=== PATIENT | male | born 1955 | race Caucasian/White ===

== ENCOUNTER 2017-10-28 14:03 | Emergency (ER) | payer BC, OTHER ==
[2017-10-28 14:14] VITALS: BP 145/90
[2017-10-28] MEDS ORDERED: Sodium Chloride 0.9% 10 ML Syringe FLUSH PRN (14:29)
[2017-10-28] MEDS ORDERED: Magnesium Sulfate/Water 2 GM in Premix Bag 1 BAG IV ONE (14:30)
[2017-10-28] MEDS ORDERED: Albuterol 0.083% 2.5 MG/3 ML Neb Soln NEB ONE (14:30)
[2017-10-28] MEDS ORDERED: Aspirin 81 MG Tab.Chew PO ONE (14:30)
[2017-10-28] MEDS ORDERED: Albuterol/Ipratropium 3.0-0.5 MG/3 ML Neb Soln NEB ONE (14:36)
--- NOTE | 2017-10-28 14:38 | EDM.PDOC ---
ED HPI GENERAL MEDICAL PROBLEM - General Chief Complaint: Cardiovascular Problem Stated Complaint: DIFFICULTY BREATHING Time Seen by Provider: 10/28/17 14:20 Source of Information: Reports: Patient History Limitations: Reports: No Limitations - History of Present Illness INITIAL COMMENTS - FREE TEXT/NARRATIVE: Patient is a 62-year-old male with a history of COPD who presents the ED complaining of shortness of breath, chest tightness, episodic diaphoresis, and mild dizziness/nausea. Patient has been outdoor shampooing some carpets and up and down steps today. He got winded and short of breath. This is not unusual for him since he has a history of COPD. The issue is he has been unable to catch his breath. Normally uses a albuterol neb treatment and also inhaler 3 times a day. He has not been able to do this since his albuterol neb treatment is at home. He has used his albuterol inhaler twice today with no significant improvements. Denies any cardiac history. Past medical history includes: COPD, seasonal allergies, hypertension, hypothyroidism, anemia Patient is on Mucinex, Mirapex, multivitamin, Singulair, lysine, Claritin, lisinopril, Synthroid, Flonase, ferrous sulfate, Symbicort, DuoNeb, and albuterol inhaler. Treatments CONDUCTOR/BRAKEMAN: Reports: Other (see below) Other Treatments CONDUCTOR/BRAKEMAN: albuteral inhaler - Related Data Allergies Allergy/AdvReac Type Severity Reaction Status Date / Time codeine AdvReac Nausea and Verified 01/13/16 13:48 Vomiting Home Meds: Home Meds Levothyroxine Sodium [Synthroid] 150 mcg PO DAILY 08/26/13 [History] Lisinopril 20 mg PO DAILY 08/26/13 [History] Montelukast [Singulair] 10 mg PO BEDTIME 08/26/13 [History] Multivitamin [Multi-Vitamin Daily] 1 each PO DAILY 08/26/13 [History] Albuterol Sulfate [Proventil Hfa] 6.7 gm IH Q4HR PRN 01/13/16 [History] Albuterol/Ipratropium [DuoNeb 3.0-0.5 MG/3 ML] 3 ml NEB Q4HR 01/13/16 [History] Budesonide/Formoterol [Symbicort 160-4.5 MCG] 2 puff INH BID 01/13/16 [History] Fluticasone Propionate [Flonase] 2 sprays NASBOTH DAILY 01/13/16 [History] Loratadine [Claritin] 10 mg PO DAILY PRN 01/13/16 [History] Lysine 500 mg PO DAILY 01/13/16 [History] Pramipexole Di-HCl [Mirapex] 0.125 mg PO DAILY PRN 01/13/16 [History] guaiFENesin [Mucinex] 1,200 mg PO DAILY PRN 01/13/16 [History] Past Medical History HEENT History: Reports: Impaired Vision Cardiovascular History: Reports: Hypertension Respiratory History: Reports: Asthma, COPD - Past Surgical History Other GI Surgeries/Procedures: hernia repair september 2014 Other Endocrine Surgeries/Procedures: thyroidectomy 5 years ago Social & Family History - Tobacco Use Smoking Status *Q: Former Smoker Used Tobacco, but Quit: Yes Month/Year Tobacco Last Used: 9 yrs - Caffeine Use Caffeine Use: Reports: Coffee, Soda - Recreational Drug Use Recreational Drug Use: No ED ROS GENERAL - Review of Systems Review Of Systems: See Below Constitutional: Reports: No Symptoms ED EXAM, GENERAL - Physical Exam Exam: See Below Exam Limited By: Other (Short of breath able to speak in 4 word sentences.) General Appearance: Alert, WD/WN, Mild Distress Eye Exam: Bilateral Eye: Normal Inspection, PERRL Ears: Hearing Grossly Normal Nose: Normal Inspection Throat/Mouth: Normal Voice, No Airway Compromise Head: Atraumatic, Normocephalic Neck: Normal Inspection, Supple, Non-Tender, Full Range of Motion Respiratory/Chest: Lungs Clear (Diminished throughout.), Chest Non-Tender, Accessory Muscle Use, Prolonged Expiration Cardiovascular: Normal Peripheral Pulses, Regular Rate, Rhythm, No Murmur Peripheral Pulses: 4+: Radial (L) GI/Abdominal: Normal Bowel Sounds, Soft, Non-Tender, No Organomegaly, No Distention Extremities: Normal Range of Motion, Non-Tender, Other (Coloring noted to the lower extremities consistent with venous stasis issues. Hemosiderin color.). No : No Pedal Edema (Trace edema bilaterally. No pain posteriorly.) Neurological: Alert, Oriented, CN II-XII Intact, Normal Cognition, No Motor/ Sensory Deficits Psychiatric: Normal Affect, Normal Mood Skin Exam: Warm, Dry, Intact Course - Vital Signs Last Recorded V/S: Last Vital Signs Temp 96.7 F 10/28/17 14:12 Pulse 97 10/28/17 14:12 Resp 21 H 10/28/17 14:12 BP 145/90 H 10/28/17 14:12 Pulse Ox 95 10/28/17 14:37 - Orders/Labs/Meds Labs: Laboratory Tests 10/28/17 10/28/17 10/28/17 Range/Units 14:38 14:38 14:38 WBC 8.98 (4.23-9.07) K/mm3 RBC 4.69 (4.63-6.08) M/mm3 Hgb 14.4 (13.7-17.5) gm/L Hct 43.8 (40.1-51.0) % MCV 93.4 H (79.0-92.2) fl MCH 30.7 (25.7-32.2) pg MCHC 32.9 (32.2-35.5) g/dl RDW Std Deviation 47.2 H (35.1-43.9) fL Plt Count 197 (163-337) K/mm3 MPV 10.5 (9.4-12.3) fl Neutrophils % (Manual) 57 (40-60) % Band Neutrophils % 1 (0-10) % Lymphocytes % (Manual) 33 (20-40) % Atypical Lymphs % 0 % Monocytes % (Manual) 3 (2-10) % Eosinophils % (Manual) 5 (0.8-7.0) % Basophils % (Manual) 1 (0.2-1.2) Platelet Estimate Adequate Plt Morphology Comment Normal RBC Morph Comment Normal PT 10.3 (9.5-12.1) SECONDS INR 0.94 APTT 29 (24-31) SECONDS D-Dimer, Quantitative 0.64 H (0.19-0.50) mg/L Sodium 142 (136-145) mEq/L Potassium 4.1 (3.5-5.1) mEq/L Chloride 107 (98-107) mEq/L Carbon Dioxide 23 (21-32) mEq/L Anion Gap 16.1 H (5-15) BUN 27 H (7-18) mg/dL Creatinine 1.2 (0.7-1.3) mg/dL Est Cr Clr Drug Dosing 66.24 mL/min Estimated GFR (MDRD) > 60 (>60) mL/min BUN/Creatinine Ratio 22.5 H (14-18) Glucose 166 H (80-115) mg/dL Calcium 8.0 L (8.5-10.1) mg/dL Magnesium 1.9 (1.8-2.4) mg/dl Total Bilirubin 0.3 (0.2-1.0) mg/dL AST 7 L (15-37) U/L ALT 33 (16-63) U/L Alkaline Phosphatase 113 (46-116) U/L Troponin I < 0.017 (0.00-0.056) ng/mL NT-Pro-B Natriuret Pep (0-125) pg/mL Total Protein 6.4 (6.4-8.2) g/dl Albumin 3.3 L (3.4-5.0) g/dl Globulin 3.1 gm/dL Albumin/Globulin Ratio 1.1 (1-2) 10/28/17 10/28/17 Range/Units 14:38 18:06 WBC (4.23-9.07) K/mm3 RBC (4.63-6.08) M/mm3 Hgb (13.7-17.5) gm/L Hct (40.1-51.0) % MCV (79.0-92.2) fl MCH (25.7-32.2) pg MCHC (32.2-35.5) g/dl RDW Std Deviation (35.1-43.9) fL Plt Count (163-337) K/mm3 MPV (9.4-12.3) fl Neutrophils % (Manual) (40-60) % Band Neutrophils % (0-10) % Lymphocytes % (Manual) (20-40) % Atypical Lymphs % % Monocytes % (Manual) (2-10) % Eosinophils % (Manual) (0.8-7.0) % Basophils % (Manual) (0.2-1.2) Platelet Estimate Plt Morphology Comment RBC Morph Comment PT (9.5-12.1) SECONDS INR APTT (24-31) SECONDS D-Dimer, Quantitative (0.19-0.50) mg/L Sodium (136-145) mEq/L Potassium (3.5-5.1) mEq/L Chloride (98-107) mEq/L Carbon Dioxide (21-32) mEq/L Anion Gap (5-15) BUN (7-18) mg/dL Creatinine (0.7-1.3) mg/dL Est Cr Clr Drug Dosing mL/min Estimated GFR (MDRD) (>60) mL/min BUN/Creatinine Ratio (14-18) Glucose (80-115) mg/dL Calcium (8.5-10.1) mg/dL Magnesium (1.8-2.4) mg/dl Total Bilirubin (0.2-1.0) mg/dL AST (15-37) U/L ALT (16-63) U/L Alkaline Phosphatase (46-116) U/L Troponin I < 0.017 (0.00-0.056) ng/mL NT-Pro-B Natriuret Pep 58 (0-125) pg/mL Total Protein (6.4-8.2) g/dl Albumin (3.4-5.0) g/dl Globulin gm/dL Albumin/Globulin Ratio (1-2) Meds: Medications Discontinued Medications Generic Name Dose Route Start Last Admin Trade Name Freq PRN Reason Stop Dose Admin Albuterol 2.5 mg 10/28/17 14:30 10/28/17 14:35 Proventil Neb Soln NEB 10/28/17 14:31 2.5 mg ONETIME ONE Administration Albuterol/Ipratropium 3 ml 10/28/17 14:36 10/28/17 16:34 Duoneb 3.0-0.5 Mg/3 Ml NEB 10/28/17 14:37 3 ml ONETIME ONE Administration Aspirin 324 mg 10/28/17 14:30 10/28/17 14:40 Aspirin PO 10/28/17 14:31 324 mg ONETIME ONE Administration Magnesium Sulfate 2 gm/ Premix 50 mls @ 25 mls/hr 10/28/17 14:30 10/28/17 14: 40 IV 10/28/17 16:29 25 mls/hr ONETIME ONE Administration Sodium Chloride 10 ml 10/28/17 14:29 10/28/17 14:40 Saline Flush FLUSH 10 ml ASDIRECTED PRN Administration Keep Vein Open - Re-Assessments/Exams Free Text/Narrative Re-Assessment/Exam: Peripheral IV will be started. Ordered magnesium 2 g IV, aspirin 324 mg by mouth , and albuterol neb treatment 1. Initial labs and studies include CBC, chem 14, magnesium, Procrit BMP, coag studies, troponin, chest x-ray two-view, and EKG. EKG: Sinus rhythm at a rate of 70, early R-wave transition with poor R-wave transition. QT mildly prolonged. Left axis deviation -20. Q waves 1, 3, and aVF old inferior wall TX. CXR: Reviewed with Dr. Hargrove with no acute findings noted. Labs reviewed: CMP did not reveal any concerning findings. CBC was essentially normal. D-dimer is mildly elevated at 0.64 appropriate for age. Troponin less than 0.017. ProBNP is 58. Magnesium is 1.9. 1555 Reassessment, patient states his breathing has significant improvement with the above therapies. Patient believes all symptoms are related to his COPD. I will obtain a second troponin 3 hours from initial blood draw. 1730 2nd troponin should be drawn. 10/28/17 18:49 Second troponin unchanged. Reassessment, patient has no concerning symptoms. He is ready to be discharged home. Discharge instructions as documented. Departure - Departure Time of Disposition: 18:55 Disposition: Home, Self-Care 01 Condition: Good Clinical Impression: COPD exacerbation Instructions: Chronic Obstructive Pulmonary Disease Exacerbation, [id number] , Chronic Obstructive Pulmonary Disease Referrals: Main Coles MD [Primary Care Provider] - Forms: ED Department Discharge Additional Instructions: Continue taking all home medications as prescribed. Followup with PCP this coming week for reevaluation. Return to the E.D. for any new or worsening symptoms.
--- NOTE | 2017-10-29 08:23 | CR ---
Chest: Two views of the chest were obtained. Comparison: Prior chest x-ray of 08/25/13. Heart size slightly enlarged. Upper mediastinum is widened but stable. Lungs are clear with no acute parenchymal change. Surgical clips are seen within the left upper abdomen. Bony structures are grossly intact. Impression: 1. Incidental findings. Nothing acute is seen. Diagnostic code #2
== END 2017-10-28 19:05 | disposition home or self-care (01) ==
LOC: JD.ED 14:03
DX: J44.1 Chronic obstructive pulmonary disease with (acute) exacerbation (principal); I10 Essential (primary) hypertension; Z87.891 Personal history of nicotine dependence; Z79.899 Other long term (current) drug therapy; Z88.5 Allergy status to narcotic agent
CPT/HCPCS: 36415; 71046; 80053; 83735; 83880; 84484; 85007; 85027; 85379; 85610; 85730; 93005; 94640; 96365; 96366; 99285; A9270; J7050; 99283; J3475

== ENCOUNTER 2020-04-12 12:12 | Emergency (ER) | payer MEDICARE, BC ==
[2020-04-12 12:30] VITALS: BP 121/85; PULSE 96
--- NOTE | 2020-04-12 13:15 | EDM.PDOC ---
ED HPI GENERAL MEDICAL PROBLEM - General Chief Complaint: Respiratory Problem Stated Complaint: COVID + AND COPD SOB CHEST PAIN Time Seen by Provider: 04/12/20 12:15 Source of Information: Reports: Patient, RN Notes Reviewed History Limitations: Reports: No Limitations - History of Present Illness INITIAL COMMENTS - FREE TEXT/NARRATIVE: Patient is a 64-year-old male presenting to the emergency department with complaints of shortness of breath, chest tightness, nausea, fever, chills, and generalized body aches. States his symptoms started approximately 9 days ago. He was seen in the clinic 5 days ago by YASMEEN Nixon and had work-up completed. He was diagnosed with COVID. CT angiogram of the chest was completed that time and showed no pulmonary emboli. Patient was placed on prednisone 20 mg twice daily x5 days as well as doxycycline. He has finished his course of prednisone yesterday, but is still taking doxycycline. His symptoms have been fairly consistent throughout his illness. He does not feel that the shortness of breath is significantly worsening, however states when he woke up this morning, his chest felt tight, so he thought he should be evalu ated. He does have a pulse oximeter at home and states that his oxygen saturations have been in the low 90s. Patient has a history of COPD, hypertension, and asthma. He has been using Tylenol for his fevers which he states overall has been working. Vital signs in triage were stable. Blood pressure 121/85, pulse 96, respiratory 20, oxygen saturation 93% on room air, temperature 99.1 temporal. Headache Pain Score (Numeric/FACES): 5 - Related Data Allergies Allergy/AdvReac Type Severity Reaction Status Date / Time codeine AdvReac Nausea and Verified 04/12/20 12:30 Vomiting Home Meds: Home Meds Levothyroxine Sodium [Synthroid] 150 mcg PO DAILY 08/26/13 [History] Lisinopril 20 mg PO DAILY 08/26/13 [History] Montelukast [Singulair] 10 mg PO BEDTIME 08/26/13 [History] Multivitamin [Multi-Vitamin Daily] 1 each PO DAILY 08/26/13 [History] Albuterol Sulfate [Proventil Hfa] 6.7 gm IH Q4HR PRN 01/13/16 [History] Albuterol/Ipratropium [DuoNeb 3.0-0.5 MG/3 ML] 3 ml NEB Q4HR 01/13/16 [History] Budesonide/Formoterol [Symbicort 160-4.5 MCG] 2 puff INH BID 01/13/16 [History] Fluticasone Propionate [Flonase] 2 sprays NASBOTH DAILY 01/13/16 [History] Loratadine [Claritin] 10 mg PO DAILY PRN 01/13/16 [History] Lysine 500 mg PO DAILY 01/13/16 [History] Pramipexole Di-HCl [Mirapex] 0.125 mg PO DAILY PRN 01/13/16 [History] guaiFENesin [Mucinex] 1,200 mg PO DAILY PRN 01/13/16 [History] Past Medical History HEENT History: Reports: Impaired Vision Cardiovascular History: Reports: Hypertension Respiratory History: Reports: Asthma, COPD - Infectious Disease History Infectious Disease History: Reports: Novel Coronavirus - Past Surgical History Other GI Surgeries/Procedures: hernia repair september 2014 Endocrine Surgical History: Reports: Thyroidectomy Other Endocrine Surgeries/Procedures: thyroidectomy 5 years ago Social & Family History - Tobacco Use Tobacco Use Status *Q: Former Tobacco User Used Tobacco, but Quit: Yes Month/Year Tobacco Last Used: 12 years ago - Caffeine Use Caffeine Use: Reports: Coffee - Recreational Drug Use Recreational Drug Use: No ED ROS GENERAL - Review of Systems Review Of Systems: See Below Constitutional: Reports: Fever, Chills, Fatigue HEENT: Reports: Throat Pain. Denies: Sinus Problem Respiratory: Reports: Shortness of Breath, Pleuritic Chest Pain, Cough Cardiovascular: Reports: No Symptoms Endocrine: Reports: No Symptoms GI/Abdominal: Reports: Nausea. Denies: Abdominal Pain, Diarrhea, Vomiting : Reports: No Symptoms Musculoskeletal: Reports: Other (Generalized body aches) Skin: Reports: No Symptoms Neurological: Reports: No Symptoms Psychiatric: Reports: No Symptoms Hematologic/Lymphatic: Reports: No Symptoms Immunologic: Reports: No Symptoms ED EXAM, GENERAL - Physical Exam Exam: See Below Exam Limited By: No Limitations General Appearance: Alert, WD/WN, No Apparent Distress Respiratory/Chest: No Respiratory Distress, Lungs Clear, Normal Breath Sounds, No Accessory Muscle Use, Chest Non-Tender Cardiovascular: Normal Peripheral Pulses, Regular Rate, Rhythm, No Edema, No Gallop, No JVD, No Murmur, No Rub GI/Abdominal: Normal Bowel Sounds, Soft, Non-Tender, No Organomegaly, No Distention, No Abnormal Bruit, No Mass Neurological: Alert, Oriented, CN II-XII Intact, Normal Cognition, Normal Gait, Normal Reflexes, No Motor/Sensory Deficits Psychiatric: Normal Affect, Normal Mood Skin Exam: Warm, Dry, Intact, Normal Color, No Rash #1 Interpretation EKG Date: 04/12/20 Time: 12:35 Rhythm: NSR Rate (Beats/Min): 90 [place]: Normal P-Wave: Present QRS: Normal ST-T: Normal QT: Normal Course - Vital Signs Last Recorded V/S: Last Vital Signs Temp 99.1 F 04/12/20 12:25 Pulse 96 04/12/20 12:25 Resp 20 04/12/20 12:25 BP 121/85 04/12/20 12:25 Pulse Ox 93 L 04/12/20 12:25 - Orders/Labs/Meds Labs: Laboratory Tests 04/12/20 04/12/20 04/12/20 Range/Units 12:50 12:50 12:50 WBC 7.60 (4.23-9.07) K/mm3 RBC 4.79 (4.63-6.08) M/mm3 Hgb 14.5 (13.7-17.5) gm/dl Hct 43.8 (40.1-51.0) % MCV 91.4 (79.0-92.2) fl MCH 30.3 (25.7-32.2) pg MCHC 33.1 (32.2-35.5) g/dl RDW Std Deviation 45.8 H (35.1-43.9) fL Plt Count 191 (163-337) K/mm3 MPV 10.0 (9.4-12.3) fl Neut % (Auto) 83.4 H (34.0-67.9) % Lymph % (Auto) 10.4 L (21.8-53.1) % [place] % (Auto) 5.7 (5.3-12.2) % Eos % (Auto) 0 L (0.8-7.0) Baso % (Auto) 0.1 (0.1-1.2) % Neut # (Auto) 6.34 H (1.78-5.38) K/mm3 Lymph # (Auto) 0.79 L (1.32-3.57) K/mm3 [place] # (Auto) 0.43 (0.30-0.82) K/mm3 Eos # (Auto) 0.00 L (0.04-0.54) K/mm3 Baso # (Auto) 0.01 (0.01-0.08) K/mm3 Manual Slide Review Normal smear D-Dimer, Quantitative 1.20 H (0.19-0.50) mg/L Sodium 136 (136-145) mEq/L Potassium 3.8 (3.5-5.1) mEq/L Chloride 102 (98-107) mEq/L Carbon Dioxide 22 (21-32) mEq/L Anion Gap 15.8 H (5-15) BUN 24 H (7-18) mg/dL Creatinine 1.2 (0.7-1.3) mg/dL Est Cr Clr Drug Dosing 64.49 mL/min Estimated GFR (MDRD) > 60 (>60) mL/min BUN/Creatinine Ratio 20.0 H (14-18) Glucose 112 (80-115) mg/dL Calcium 7.8 L (8.5-10.1) mg/dL Ferritin (26-388) ng/ml Total Bilirubin 0.5 (0.2-1.0) mg/dL AST 34 (15-37) U/L ALT 56 (16-63) U/L Alkaline Phosphatase 79 (46-116) U/L Lactate Dehydrogenase 283 H (85-227) U/L Troponin I < 0.017 (0.00-0.056) ng/mL C-Reactive Protein 6.4 H* (<1.0) mg/dL NT-Pro-B Natriuret Pep (0-125) pg/mL Total Protein 6.7 (6.4-8.2) g/dl Albumin 2.8 L (3.4-5.0) g/dl Globulin 3.9 gm/dL Albumin/Globulin Ratio 0.7 L (1-2) 04/12/20 04/12/20 Range/Units 12:50 12:50 WBC (4.23-9.07) K/mm3 RBC (4.63-6.08) M/mm3 Hgb (13.7-17.5) gm/dl Hct (40.1-51.0) % MCV (79.0-92.2) fl MCH (25.7-32.2) pg MCHC (32.2-35.5) g/dl RDW Std Deviation (35.1-43.9) fL Plt Count (163-337) K/mm3 MPV (9.4-12.3) fl Neut % (Auto) (34.0-67.9) % Lymph % (Auto) (21.8-53.1) % [place] % (Auto) (5.3-12.2) % Eos % (Auto) (0.8-7.0) Baso % (Auto) (0.1-1.2) % Neut # (Auto) (1.78-5.38) K/mm3 Lymph # (Auto) (1.32-3.57) K/mm3 [place] # (Auto) (0.30-0.82) K/mm3 Eos # (Auto) (0.04-0.54) K/mm3 Baso # (Auto) (0.01-0.08) K/mm3 Manual Slide Review D-Dimer, Quantitative (0.19-0.50) mg/L Sodium (136-145) mEq/L Potassium (3.5-5.1) mEq/L Chloride (98-107) mEq/L Carbon Dioxide (21-32) mEq/L Anion Gap (5-15) BUN (7-18) mg/dL Creatinine (0.7-1.3) mg/dL Est Cr Clr Drug Dosing mL/min Estimated GFR (MDRD) (>60) mL/min BUN/Creatinine Ratio (14-18) Glucose (80-115) mg/dL Calcium (8.5-10.1) mg/dL Ferritin 639 H (26-388) ng/ml Total Bilirubin (0.2-1.0) mg/dL AST (15-37) U/L ALT (16-63) U/L Alkaline Phosphatase (46-116) U/L Lactate Dehydrogenase (85-227) U/L Troponin I (0.00-0.056) ng/mL C-Reactive Protein (<1.0) mg/dL NT-Pro-B Natriuret Pep 169 H (0-125) pg/mL Total Protein (6.4-8.2) g/dl Albumin (3.4-5.0) g/dl Globulin gm/dL Albumin/Globulin Ratio (1-2) - Re-Assessments/Exams Free Text/Narrative Re-Assessment/Exam: Patient is a 64-year-old male presenting to the emergency department with complaints of ongoing Covid symptoms. Symptoms began last Sunday which is approximately 9 days ago. He was seen in the clinic last Sunday. Chest x- ray and CT angiogram were completed that time and found to be overall normal. He was started on prednisone 20 mg twice daily x5 days, as well as doxycycline. He has finished the prednisone course yesterday and continues to take doxycycline. He presents today due to chest tightness upon waking today. He states overall his symptoms have been fairly consistent he does not feel it is necessarily getting worse. Have ordered routine Covid labs, chest x-ray, EKG. 04/12/20 13:51 Hemotology was significant for D-dimer elevated at 1.2, anion gap 15.8, ferritin 639, LDH 283, CRP 6.4, proBNP 169. Troponin was negative. EKG showed no acute ischemia. Chest x-ray showed no acute findings. Discussed the possibility of repeating CT angiogram with patient. He has elected to not recomplete the exam. I am in agreement with this as the elevation of his D-dimer is likely due to Covid as opposed to blood clot. His shortness of breath has not worsened. He is not hypoxic or tachycardic. Oxygen saturations have maintained 92 to 94% on room air throughout his stay in the ER. We will discharge him home to continue symptomatic treatment. He does have a pulse ox at home. Discussed return precautions. Discharge instructions as documented. Departure - Departure Time of Disposition: 13:52 Disposition: Home, Self-Care 01 Condition: Good Clinical Impression: COVID-19 - Discharge Information *PRESCRIPTION DRUG MONITORING PROGRAM REVIEWED*: No *COPY OF PRESCRIPTION DRUG MONITORING REPORT IN PATIENT DIALLO: No Instructions: COVID-19 Frequently Asked Questions, COVID-19 Referrals: Main Coles MD [Primary Care Provider] - Forms: ED Department Discharge Additional Instructions: You were seen in the emergency department today for ongoing symptoms related to COVID-19. Work-up included blood work, chest x-ray, and an EKG of your heart. Your blood work was consistent with a diagnosis of COVID-19 with regards to some mild elevation in your inflammatory markers. Your cardiac work-up was found to be normal. You are not having a heart attack. Chest x-ray showed no signs of pneumonia. Recommend that you continue symptomatic treatment at home. Continue to check your oxygen saturations using your pulse oximeter intermittently throughout the day. If you are maintaining an oxygen saturation below 90%, that would indicate that you are hypoxic and you should return to the emergency department for reevaluation. If you experience any other new or worsening symptoms of concern, please not hesitate to return for reevaluation. Sepsis Event Note (ED) - Evaluation Sepsis Screening Result: No Definite Risk - Focused Exam Vital Signs: Vital Signs Temp Pulse Resp BP Pulse Ox 04/12/20 12:25 99.1 F 96 20 121/85 93 L
--- NOTE | 2020-04-12 13:56 | CR ---
PROCEDURE INFORMATION: Exam: XR Chest, 1 View Exam date and time: 04/12/2020 12:18 PM Age: 64 years old Clinical indication: Shortness of breath; Chest pain; Type not specified; Patient HX: Covid+ TECHNIQUE: Imaging protocol: XR of the chest Views: 1 view. COMPARISON: DX Chest 2V 04/07/2020 10:52 AM FINDINGS: Tubes, catheters and devices: Numerous surgical clips in the expected region of the thyroid. Lungs: The lungs are normally expanded and clear. Pleural space: Normal. Heart/Mediastinum: Chronic unchanged cardiomegaly. Vasculature: Normal pulmonary vessel caliber. Normal aorta. Bones/joints: The bones are intact. IMPRESSION: No change or acute disease. Chronic cardiomegaly and evidence of prior thyroidectomy. Thank you for allowing us to participate in the care of your patient. Dictated and Authenticated by: Mauro Flower MD 04/12/2020 1:54 PM Central Time ([place] & [place]) [facility]
== END 2020-04-12 14:20 | disposition home or self-care (01) ==
LOC: JD.ED 12:12
DX: U07.1 COVID-19 (principal); I10 Essential (primary) hypertension; J44.9 Chronic obstructive pulmonary disease, unspecified; Z87.891 Personal history of nicotine dependence; Z88.5 Allergy status to narcotic agent; Z79.899 Other long term (current) drug therapy
CPT/HCPCS: 36415; 71045; 71045-26; 80053; 82728; 83615; 83880; 84484; 85025; 85379; 86140; 93005; 93010; 99283; 99285-25

== ENCOUNTER 2021-06-09 06:03 | Emergency (ER) | payer MEDICARE, BC ==
[2021-06-09 07:09] LABS: CORONAVIRUS COVID-19 NAA NEGATIVE (NEGATIVE)
[2021-06-09] MEDS ORDERED: Sodium Chloride 0.9% 1,000 ML IV SCH (08:45)
[2021-06-09] MEDS ORDERED: Iopamidol 755 Mg/ML 100 ML Bottle IVPUSH ONE (08:51)
[2021-06-09] MEDS ORDERED: Sodium Chloride 0.9% 10 ML Syringe FLUSH PRN (08:51)
[2021-06-09] MEDS ORDERED: Sodium Chloride 0.9% 100 ML IV SCH (09:00)
[2021-06-09] MEDS ORDERED: Amoxicillin/Clavulanate K 875-125 MG Tab PO STA (09:47)
[2021-06-09] MEDS ORDERED: Azithromycin 250 MG Tab PO STA (09:48)
[2021-06-09 13:52] VITALS: BP 123/75; PULSE 70
== END 2021-06-09 10:52 | disposition home or self-care (01) ==
LOC: JD.ED 06:03
DX: J18.9 Pneumonia, unspecified organism (principal); R79.89 Other specified abnormal findings of blood chemistry; I10 Essential (primary) hypertension; J44.9 Chronic obstructive pulmonary disease, unspecified; N40.0 Benign prostatic hyperplasia without lower urinary tract symptoms; E03.9 Hypothyroidism, unspecified; E66.9 Obesity, unspecified; Z68.33 Body mass index [BMI] 33.0-33.9, adult; Z88.5 Allergy status to narcotic agent; Z79.899 Other long term (current) drug therapy; Z87.891 Personal history of nicotine dependence; Z20.822 Contact with and (suspected) exposure to COVID-19
CPT/HCPCS: 0240U; 36415; 36600; 71046; 71275; 80053; 82803; 83605; 83880; 84484; 85007; 85027; 85379; 87040; 93005; 99285; A9270; J7030; Q9967

== ENCOUNTER 2021-06-28 07:41 | Emergency (ER) | payer MEDICARE, BC ==
[2021-06-28] MEDS ORDERED: Sodium Chloride 0.9% 10 ML Syringe FLUSH PRN (08:12)
[2021-06-28] MEDS ORDERED: Ondansetron 4 MG/2 ML SDV IVPUSH ONE (08:12)
[2021-06-28] MEDS ORDERED: HYDROmorphone 1 MG/ML Syringe IVPUSH ONE (08:13)
[2021-06-28] MEDS ORDERED: Ketorolac 30 MG/ML SDV IVPUSH ONE (08:14)
[2021-06-28] MEDS ORDERED: Sodium Chloride 0.9% 1,000 ML IV SCH (08:15)
[2021-06-28 11:07] VITALS: BP 145/90; PULSE 62
== END 2021-06-28 11:07 | disposition home or self-care (01) ==
LOC: JD.ED 07:41
DX: K52.9 Noninfective gastroenteritis and colitis, unspecified (principal); N30.00 Acute cystitis without hematuria; J18.9 Pneumonia, unspecified organism; I10 Essential (primary) hypertension; J44.9 Chronic obstructive pulmonary disease, unspecified; E03.9 Hypothyroidism, unspecified; E66.9 Obesity, unspecified; Z68.33 Body mass index [BMI] 33.0-33.9, adult; Z87.891 Personal history of nicotine dependence; Z88.5 Allergy status to narcotic agent; Z79.899 Other long term (current) drug therapy
CPT/HCPCS: 36415; 74176; 80053; 81001; 83690; 85025; 96374; 96375; 99284; J1170; J1885; J2405; J7030

== ENCOUNTER 2021-07-03 14:08 | Emergency (ER) | payer MEDICARE, BC ==
[2021-07-03 14:19] VITALS: BP 151/99; PULSE 82
== END 2021-07-03 15:17 | disposition home or self-care (01) ==
LOC: JD.ED 14:08
DX: B02.8 Zoster with other complications (principal); I10 Essential (primary) hypertension; J44.9 Chronic obstructive pulmonary disease, unspecified; E03.9 Hypothyroidism, unspecified; E66.9 Obesity, unspecified; Z68.30 Body mass index [BMI] 30.0-30.9, adult; Z88.5 Allergy status to narcotic agent; Z79.899 Other long term (current) drug therapy; Z87.891 Personal history of nicotine dependence
CPT/HCPCS: 99282; 99283

== ENCOUNTER 2022-04-04 18:35 | Emergency (ER) | payer MEDICARE, BC ==
[2022-04-04 18:59] VITALS: BP 154/81; PULSE 71
== END 2022-04-04 20:27 | disposition home or self-care (01) ==
LOC: JD.ED 18:35
DX: L03.115 Cellulitis of right lower limb (principal); J44.9 Chronic obstructive pulmonary disease, unspecified; Z88.5 Allergy status to narcotic agent; Z87.891 Personal history of nicotine dependence
CPT/HCPCS: 99283

== ENCOUNTER 2025-03-12 09:10 | Day surgery (SDC) | payer MEDICARE, BC ==
[2025-03-12 10:14] LABS: BASOPHILS ABSOLUTE AUTO 0.0 K/mm3 (0.0-0.2); BASOPHILS PERCENT AUTO 0.2 % (0.0-1.0); EOSINOPHILS ABSOLUTE AUTO 0.0 K/mm3 (0.0-0.4); EOSINOPHILS PERCENT AUTO 0.0 % (0.0-6.0); IMMATURE GRAN ABSOLUTE AUTO 0.06 K/mm3 (0.00-0.05); IMMATURE GRAN PERCENT AUTO 0.4 % (0.0-0.4); LYMPHOCYTES ABSOLUTE AUTO 1.4 K/mm3 (1.0-4.8); LYMPHOCYTES PERCENT AUTO 8.5 % (24.0-44.0); MEAN PLATELET VOLUME 10.0 fl (9.4-12.4); MONOCYTES ABSOLUTE AUTO 1.1 K/mm3 (0.0-0.8); MONOCYTES PERCENT AUTO 6.3 % (0.0-8.0); NEUTROPHILS ABSOLUTE AUTO 14.0 K/mm3 (1.8-7.7); NEUTROPHILS PERCENT AUTO 84.6 % (41.0-71.0); NRBC ABSOLUTE 0.00 (0.00-0.02); NRBC PERCENT 0.0 % (0.0-0.2); PLATELET COUNT,PLT 173 K/mm3 (150-400); RED BLOOD CELL COUNT 4.90 M/mm3 (4.52-5.90); WHITE BLOOD CELL COUNT,WBC 16.55 K/mm3 (3.9-11.3)
[2025-03-12] MEDS: Ondansetron 4 MG/2 ML SDV IVPUSH ONE (10:14)
[2025-03-12] MEDS ORDERED: Sodium Chloride 0.9% 10 ML Syringe FLUSH PRN (10:30)
[2025-03-12 11:11] LABS: A/G RATIO 0.9 (1-2); ALANINE AMINOTRANSFERASE,ALT 25.0 U/L (16-63); ASPARTATE AMNIOTRANSFERASE,AST 18.0 U/L (15-37); BILIRUBIN TOTAL 1.2 mg/dL (0.2-1.0); BLOOD UREA NITROGEN,BUN 21.0 mg/dL (7-18); CARBON DIOXIDE,CO2 27.0 mEq/L (21-32); CHLORIDE,CL 103.0 mEq/L (98-107); CREATININE 1.4 mg/dL (0.7-1.3); EST CRCL DRUG DOSING (CG) 49.97 mL/min; ESTIMATED GFR 54.0 mL/min (>60); GLUCOSE RANDOM 105.0 mg/dL (70-99); POTASSIUM,K 4.4 mEq/L (3.5-5.1); PROTEIN TOTAL,TP 6.5 g/dl (6.4-8.2); SODIUM,NA 139.0 mEq/L (136-145)
[2025-03-12] MEDS: Sodium Chloride 0.9% 10 ML Syringe FLUSH PRN (11:22)
[2025-03-12] MEDS: Iopamidol 612 MG/ML 100 ML Bottle IVPUSH ONE (11:22)
[2025-03-12] MEDS: Cefepime 2 GM in Water For Injection, Sterile 20 ML IVPUSH ONE (12:49)
[2025-03-12] MEDS ORDERED: Propofol 200 MG/20 ML SDV ONE (13:44)
[2025-03-12] MEDS ORDERED: fentaNYL 100 MCG/2 ML SDV ONE ×2 (13:44→14:28)
[2025-03-12] MEDS ORDERED: Phenylephrine 1% 10 MG/ML SDV ONE (13:51)
[2025-03-12] MEDS: Albuterol 0.083% 2.5 MG/3 ML Neb Soln NEB ONE (14:34)
[2025-03-12 14:39] LABS: APPEARANCE,URINE SLT CLOUDY (Clear); GLUCOSE,URINE NEGATIVE (Negative); OCCULT BLOOD,URINE 2+ (Negative)
[2025-03-12] MEDS ORDERED: Dexamethasone 4 MG/ML 5 ML MDV ONE (14:45)
[2025-03-12] MEDS ORDERED: Lactated Ringers 1,000 ML ONE (14:47)
[2025-03-12] MEDS: EPINEPHrine 1 MG/ML SDV ONE (14:56)
[2025-03-12 15:07] LABS: EPITHELIAL CELLS,URINE 0-5 /hpf (0-5)
[2025-03-12 17:22] VITALS: BP 115/73; PULSE 80
== END 2025-03-12 17:13 | disposition home or self-care (01) ==
LOC: JD.ED 09:10 → JD.SDS 12:47
PROVIDERS: ATTEND Surgery
DX: K35.80 Unspecified acute appendicitis (principal); I10 Essential (primary) hypertension; E03.9 Hypothyroidism, unspecified; J44.9 Chronic obstructive pulmonary disease, unspecified; E66.9 Obesity, unspecified; Z87.891 Personal history of nicotine dependence; Z88.6 Allergy status to analgesic agent; Z88.5 Allergy status to narcotic agent; Z79.890 Hormone replacement therapy; Z79.899 Other long term (current) drug therapy
CPT/HCPCS: 36415; 44970; 74177; 80053; 81001; 83690; 85025; 94640; 96361; 96374; 96375; 96376; 99285; A4216; A9270; J0169; J0665; J0692; J0694; J1100; J2003; J2371; J2405; J2704; J3010; J7030; J7120; Q9967; 00840; 99100; 99140; J1171; J3490